=== PATIENT | female | born 1950 | race Caucasian/White ===

== ENCOUNTER 2016-11-02 11:47 | Day surgery (SDC) | payer OTHER ==
[~2016-11-02 11:47] MED LIST: CYMBALTA30 PO; CYMBALTA60 PO; FLEXERIL5 MG PO; GYNODIOL2 MG PO; LISINOPRIL40 MG PO; MOBIC15 MG PO; MSCONT15 PO; NORCO1 TAB PO; NORV10 PO; PROTONIX PO; SAPHRIS10 MG SL; TRILEP300 PO; XANAX1 MG PO; ZYRTEC ALLGY10 MG PO
== END 2016-11-02 23:59 | disposition home or self-care (01) ==
LOC: DMU 11:47
PROVIDERS: Internal Medicine Gastroenterology
PROC: 4A0B78Z Measurement of Gastrointestinal Motility, Via Natural or Artificial Opening (ICD-10-PCS; principal; 2016-11-02 12:30)
DX: R93.3 Abnormal findings on diagnostic imaging of other parts of digestive tract (principal)
CPT/HCPCS: A9270-GY; C1894